=== PATIENT | male | born 1960 | race Caucasian/White ===

== ENCOUNTER 2019-04-10 12:33 | Emergency (ER) | payer SELFPAY ==
[2019-04-10] MEDS ORDERED: Oxymetazoline 0.05% Nasal Spray 30 ML Bottle NAS ONE (13:16)
--- NOTE | 2019-04-10 13:30 | EDM.PDOC ---
ED HPI GENERAL MEDICAL PROBLEM - General Chief Complaint: ENT Problem Stated Complaint: BLOODY NOSE Time Seen by Provider: 04/10/19 13:11 Source of Information: Reports: Patient - History of Present Illness INITIAL COMMENTS - FREE TEXT/NARRATIVE: Emeka is a 58 y/o male who comes to the ER with a bloody nose. He reports that he blew his nose about 0730 this AM and it has continued ever since. He denies any blood thinners or aspirin use. He does report that he has high blood pressure and does not take medications. - Related Data Allergies Allergy/AdvReac Type Severity Reaction Status Date / Time No Known Allergies Allergy Verified 04/10/19 13:29 Home Meds: Home Meds . [No Known Home Meds] 04/10/19 [History] ED ROS ENT - Review of Systems Review Of Systems: See Below Constitutional: Reports: No Symptoms HEENT: Reports: Nosebleed Respiratory: Reports: No Symptoms Cardiovascular: Reports: No Symptoms Endocrine: Reports: No Symptoms GI/Abdominal: Reports: No Symptoms : Reports: No Symptoms Musculoskeletal: Reports: No Symptoms Skin: Reports: No Symptoms Neurological: Reports: No Symptoms Psychiatric: Reports: No Symptoms Hematologic/Lymphatic: Reports: No Symptoms Immunologic: Reports: No Symptoms ED EXAM, ENT - Physical Exam Exam: See Below General Appearance: Alert, WD/WN, No Apparent Distress Ears: Hearing Grossly Normal Nose: Active Bleeding (right nare) ED ENT PROCEDURES - Epistaxis Procedure Recent anticoagulants/antiplatlets: No Uncontrolled HTN: Yes Recent septal/nasal surgery: No Site of bleeding: Right Nare, Anterior Clearing of clots: Other (cleared with large rectal swab) Topical Meds: Phenylephrine Ice pack to area: No Chemical cautery: Silver Nitrate Topical Anterior Packing: Inflatable Nasal Tampon Course - Vital Signs Text/Narrative:: 1311 Patient was seen by the LAP CHECKER. Nose was packed with anterior nasal packing after Afrin and crushed Silver Nitrate placed in right nare. Bleeding appeared to have stopped. 1430 Lab results reviewed. Patient reported drinking whiskey 4 days per week for "a long time". Patient observed in the ER and bleeding seemed to have stopped. He was feeling better. Discharge instructions were given and he was sent home in stable condition. Last Recorded V/S: Last Vital Signs Temp 37.7 C 04/10/19 12:40 Pulse 140 H 04/10/19 12:40 Resp 20 04/10/19 12:40 BP 146/104 H 04/10/19 12:40 Pulse Ox 97 04/10/19 12:40 - Orders/Labs/Meds Labs: Laboratory Tests 04/10/19 04/10/19 04/10/19 Range/Units 13:35 13:35 13:35 WBC 9.3 (4.0-10.0) x10^3/uL RBC 5.17 (4.5-6.0) x10^6/uL Hgb 15.9 (14.0-18.0) g/dL Hct 45.2 (40.0-52.0) % MCV 87.4 (78.0-93.0) fL MCH 30.8 (26.0-32.0) pg MCHC 35.2 (32.0-36.0) g/dL RDW Coeff of Nataliya 14.6 (10.0-15.0) % Plt Count 117 L (130-400) x10^3/uL Neut % (Auto) 80.9 H (50.0-80.0) % Lymph % (Auto) 12.1 L (25.0-50.0) % [place] % (Auto) 6.3 (2.0-11.0) % Eos % (Auto) 0.5 (0.0-4.0) % Baso % (Auto) 0.2 (0.2-1.2) % PT 9.8 L (10.0-12.8) SEC INR 0.9 L (2.0-3.5) APTT 27.2 (24.0-36.0) SEC Sodium 137 (136-145) mmol/L Potassium 4.1 (3.5-5.1) mmol/L Chloride 97 L (98-107) mmol/L Carbon Dioxide 21 (21-32) mmol/L Anion Gap 23.1 H (10-20) mmol/L BUN 30 H (7-18) mg/dL Creatinine 1.1 (0.70-1.30) mg/dL Est Cr Clr Drug Dosing TNP Estimated GFR (MDRD) > 60 Glucose 155 H (74-106) mg/dL Calcium 9.2 (8.5-10.1) mg/dL Corrected Calcium 9.44 (8.5-10.1) mg/dL Total Bilirubin 2.3 H (0.2-1.0) mg/dL AST 81 H (15-37) U/L ALT 77 H (16-63) U/L Alkaline Phosphatase 97 (46-116) U/L Total Protein 7.4 (6.4-8.2) g/dL Albumin 3.7 (3.4-5.0) g/dL Globulin 3.7 Albumin/Globulin Ratio 1.00 Meds: Medications Discontinued Medications Generic Name Dose Route Start Last Admin Trade Name Freq PRN Reason Stop Dose Admin Oxymetazoline HCl 1 ml 04/10/19 13:16 04/10/19 13:20 Nasal Decongestant Sophia SERENA 04/10/19 13:17 4 spr ONETIME ONE Administration Departure - Departure Time of Disposition: 14:31 Disposition: Home, Self-Care 01 Condition: Good Clinical Impression: Epistaxis, Chronic alcohol abuse - Discharge Information *PRESCRIPTION DRUG MONITORING PROGRAM REVIEWED*: No *COPY OF PRESCRIPTION DRUG MONITORING REPORT IN PATIENT PA: No Instructions: Nosebleed, Adult, What You Need to Know About Alcohol Abuse and Dependence, Adult, Alcohol Use Disorder Referrals: So Bhatti MD [Primary Care Provider] - Forms: ED Department Discharge Additional Instructions: 1)Make an appt at the clinic with your PCP to have the nasal packing removed ini 24 hours 2)Do not remove the packing 3)Do not blow your nose 4)Avoid alcohol and consider getting into an alcohol rehab program 5)If bleeding recurs you need to return to the ER for further care
[2019-04-10 14:01] LABS: ANION GAP 23.1 mmol/L (10-20); CHLORIDE,CL 97 mmol/L (98-107); SODIUM,NA 137 mmol/L (136-145)
== END 2019-04-10 14:37 | disposition home or self-care (01) ==
LOC: VM.ED 12:33
DX: R04.0 Epistaxis (principal); F10.10 Alcohol abuse, uncomplicated
CPT/HCPCS: 30903; 36415; 80053; 85025; 85610; 85730; 99283; A9270; 30901